=== PATIENT | male | born 1990 | race Two or more races ===

== ENCOUNTER 2016-05-15 17:15 | Emergency (ER) | payer OTHER ==
[2016-05-15 17:19] VITALS: O2SAT 95
--- NOTE | 2016-05-15 17:50 | CPEKG ---
Heart Rate: 86 RR Interval: 698 P-R Interval: 148 QRSD Interval: 104 QT Interval: 380 QTC Interval: 455 P [place]: 69 QRS [place]: 75 T Wave [place]: 51 EKG Severity - NORMAL ECG - EKG Impression: SINUS RHYTHM Electronically Signed By: Hyacinth Higuera 15-May-2016 19:34:11
--- NOTE | 2016-05-15 18:03 | EDPHY ---
H & P Stated Complaint: snycope earlier today - Personal History Current Tetanus/Diphtheria Vaccine: Unsure Current Tetanus Diphtheria and Acellular Pertussis (TDAP): Unsure - Medical/Surgical History Hx Asthma: Yes Hx Chronic Respiratory Disease: No Hx Diabetes: No Hx Cardiac Disease: No Hx Renal Disease: No Hx Cirrhosis: No Hx Alcoholism: No Hx HIV/AIDS: No Hx Splenectomy or Spleen Trauma: No Other PMH: DEPRESSION - Social History Smoking Status: Never smoked Constitutional: Initial Vital Signs Temperature (C) 36.6 C 05/15/16 17:18 Heart Rate 92 05/15/16 17:18 Respiratory Rate 14 05/15/16 17:18 Blood Pressure 111/72 05/15/16 17:18 O2 Sat (%) 95 05/15/16 17:18 O2 Delivery Mode Room Air Allergies/Adverse Reactions: CATS Allergy (Uncoded 01/24/15 12:37) environmental, trees Allergy (Uncoded 01/24/15 12:36) Home Medications: Medication Instructions Recorded Advair 100/50 (RX) 01/24/15 Meclizine HCl [Meclizine HCl 25 mg 25 mg PO TID PRN #10 tab 01/24/15 (RX,OTC)] Omeprazole 01/24/15
--- NOTE | 2016-05-15 18:04 | EDPHY ---
H & P Stated Complaint: snycope earlier today Time Seen by Provider: 05/15/16 17:47 HPI/ROS: CHIEF COMPLAINT: Syncope HISTORY OF PRESENT ILLNESS: The patient is a 25 y/o male arriving after a syncopal event while at elevation today. He says he flew in from [place] today and drove straight up to [facility] at 8000[address]. He got out of the car, began to feel dizzy, leaned against the car, and then lost consciousness. He was not confused upon regaining consciousness. He notes he had a mild stomach ache and felt dehydrated after the flight from [place]. He currently feels a "little spacey," but otherwise normal. He did have cold symptoms that recently resolved. He denies vomiting, diarrhea, bloody bowel movements, headache, shortness of breath, chest pain, injury from fainting, or pain anywhere. He had a previous syncopal episode in the remote past secondary to medication. History of asthma. REVIEW OF SYSTEMS: A 10 point review of systems was performed and is negative with the exception of the elements mentioned in the history of present illness. Source: Patient Exam Limitations: No limitations - Personal History Current Tetanus/Diphtheria Vaccine: Unsure Current Tetanus Diphtheria and Acellular Pertussis (TDAP): Unsure - Medical/Surgical History PMH: PMH includes: 1. Asthma 2. Previous syncope 8 years ago 3. Depression Hx Asthma: Yes Hx Chronic Respiratory Disease: No Hx Diabetes: No Hx Cardiac Disease: No Hx Renal Disease: No Hx Cirrhosis: No Hx Alcoholism: No Hx HIV/AIDS: No Hx Splenectomy or Spleen Trauma: No Other PMH: DEPRESSION - Social History Smoking Status: Never smoked Additional Social History: Nonsmoker. Occasional marijuana use. Studies chemistry and engineering at . - Physical Exam Exam: General Appearance: Alert, no acute distress. Eyes: Pupils equal and round, no conjunctival injection, no discharge. ENT, Mouth: Mucous membranes are moist, no oropharyngeal erythema or edema. Neck: No lymphadenopathy, supple, no cervical spine tenderness. Respiratory: Lungs are clear to auscultation; no wheezes, rales, or rhonchi. Cardiovascular: Regular rate and rhythm; no murmur, rub, or gallop. Gastrointestinal: Abdomen is soft and non tender, no masses or organomegaly, bowel sounds normal. Skin: Warm and dry, no rashes, normal color. Back: Nontender to palpation over the thoracolumbar spine. Extremities: No lower extremity edema, no calf tenderness or swelling. Neurological: Alert and oriented. Moving all four extremities easily and equally. Cranial nerves II through XII are examined and are intact (visual acuity not tested). Strength is 5 over 5 bilaterally with testing of all major motor groups. Sensation is intact to light touch over all 4 extremities. Deep tendon reflexes are 2+ in the biceps and knees bilaterally. Gait is normal. [id number] is performed accurately. Psychiatric: Normal affect. Constitutional: Initial Vital Signs Temperature (C) 36.6 C 05/15/16 17:18 Heart Rate 92 05/15/16 17:18 Respiratory Rate 14 05/15/16 17:18 Blood Pressure 111/72 05/15/16 17:18 O2 Sat (%) 95 05/15/16 17:18 O2 Delivery Mode Room Air Allergies/Adverse Reactions: CATS Allergy (Uncoded 01/24/15 12:37) environmental, trees Allergy (Uncoded 01/24/15 12:36) Home Medications: Medication Instructions Recorded Advair 100/50 (RX) 01/24/15 Meclizine HCl [Meclizine HCl 25 mg 25 mg PO TID PRN #10 tab 01/24/15 (RX,OTC)] Omeprazole 01/24/15 Medical Decision Making - Diagnostics EKG Interpretation: The 12 lead EKG was interpreted by myself. Sinus rhythm rate 86. See hard copy and/or "tracemaster" electronic copy for interpretation. ED Course/Re-evaluation: This is a healthy 25 y/o male presenting to the ED after a syncopal episode at altitude today. He reports he just flew in from [place] then drove up to 8000'. Upon standing up, he became dizzy then lost consciousness. He was not confused upon regaining consciousness and denies injury or incontinence. He is asymptomatic at time of assessment. His exam is unremarkable and his vitals are WNL. IV established. CBC drawn. Patient placed on customs compliance director. Recommended PO fluids. EKG is normal. CBC is unremarkable. He will be discharged with general syncope instructions and return precautions. This is likely a vasovagal event. He's been referred to [facility] for follow up. He is comfortable with this plan. Differential Diagnosis: Syncope including but not limited to vasovagal syncope, arrhythmia, dehydration , and blood loss. - Data Points Laboratory Results: Laboratory Results 05/15/16 18:10 Departure - Departure Disposition: Home, Routine, Self-Care Clinical Impression: Syncope Qualifiers: Syncope type: vasovagal syncope Qualifier Code: (R55) Syncope and collapse Condition: Good Instructions: Syncope (ED) Additional Instructions: 1. Increase fluid intake, particularly at altitude. 2. Follow up with a primary care provider this week for persistent symptoms. 3. Return to the ED for chest pain, shortness of breath, headache, or repeat fainting. Referrals: [facility] [place] [Outside] - As per Instructions Report Scribed for: Hyacinth Higuera Report Scribed by: Lin Darnell Date of Report: 05/15/16 Time of Report: 18:06 Physician Review and Approval Statement: 05/17/16 09:51 Portions of this note were transcribed by the coroner/medical examiner. I, Dr. Hyacinth Higuera, personally performed the history, physical exam, and medical decision- making; and confirmed the accuracy of the information in the transcribed note.
[2016-05-15 18:13] LABS: % IMMATURE GRANULYOCYTES 0.6 % (0.0-1.1); ABSOLUTE IMMATURE GRANULOCYTES 0.06 10^3/uL (0.00-0.10); ADD DIFF? NO; ADD MORPH? NO; ADD SCAN? NO; ATYPICAL LYMPHOCYTE FLAG 0 (0-99); FRAGMENT RBC FLAG 0 (0-99); HEMATOCRIT 41.9 % (40.0-51.0); HEMOGLOBIN 15.1 g/dL (13.7-17.5); LEFT SHIFT FLG 0 (0-99); LIPEMIA HEMOLYSIS FLAG 90 (0-99); MEAN CELL HEMOGLOBIN 29.9 pg (27.9-34.1); MEAN PLATELET VOLUME 9.6 fL (8.7-11.7); PLATELET CLUMPS FLAG 0 (0-99); PLATELET COUNT 302 10^3/uL (150-400); RED BLOOD CELL COUNT 5.05 10^6/uL (4.40-6.38); RED CELL DISTRIBUTION WIDTH 12.9 % (11.5-15.2)
[2016-05-15 18:53] VITALS: BP 118/79; PULSE 73; RESP 16; TEMP 97.5
== END 2016-05-15 18:51 | disposition home or self-care (01) ==
DX: R55 Syncope and collapse (principal); J45.909 Unspecified asthma, uncomplicated

== ENCOUNTER 2017-04-17 16:07 | Emergency (ER) | payer OTHER ==
--- NOTE | 2017-04-17 16:24 | EDPHY ---
H & P Stated Complaint: Hyperventilating;+carpal spasms;under a lot of stress w/finals Time Seen by Provider: 04/17/17 16:23 HPI/ROS: HPI: This is a 26-year-old male presents with Chief Complaint: Hyperventilating;+carpal spasms;under a lot of stress w/finals Location: Body Quality: Proventil Duration: Approximately 30 min Signs and Symptoms: No chest pain, no palpitations, no abdominal pain, no urinary symptoms, no fever, no headache, no neck stiffness, + dyspnea, + cough, + wheezing Timing: Sudden onset Severity: Severe Context: Medical history of depression, anxiety patient reports that he is compliant with Prozac presents with sudden onset of lightheadedness, nausea and then rapid breathing pattern. He reports that he just could not catch his breath. 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 He is most worried about his [employer] final. Denies suicidal ideation/homicidal ideation. No prior history of panic attacks but he does suffer from anxiety from time to time. No recent long distance travel. No swelling in his lower extremities. Patient asking if he can have a note to be excused from his final today. Modifying Factors: None Comment: ROS: see HPI Constitutional: No fever, no chills, no weight loss Eyes: No blurred vision Respiratory: No shortness of breath, no cough Cardiovascular: No chest pain Gastrointestinal: No nausea, no vomiting, no diarrhea Genitourinary: No dysuria Extremities: No myalgias Neurologic: No weakness, no numbness Skin: No rashes Hematologic: No bruising, no bleeding MEDICAL/SURGICAL/SOCIAL HISTORY: Medical history: Depression, anxiety. Takes Prozac. Surgical history: Denies Social history: Local college student CONSTITUTIONAL: Extremely anxious but polite and cooperative adult male, friend at bedside, awake and alert, no obvious distress HEENT: Atraumatic and normocephalic, PERRL, EOMI. Tympanic membranes clear. Oropharynx clear, no exudate and moist pink mucosa. Airway patent. No lymphadenopathy. No meningismus. Cardiovascular: Normal S1/S2, tachycardia, regular rhythm, without murmur rub or gallop. PULMONARY/CHEST: Symmetrical and nontender. Clear to auscultation bilaterally. Good air movement. No accessory muscle usage. Tachypneic with shallow rapid beat breathing pattern. ABDOMEN: Soft, nondistended, nontender, no rebound, no guarding, no peritoneal signs, no masses or organomegaly. No CVAT. EXTREMITIES: 2/2 pulses, strength 5/5, no deformities, no clubbing, no cyanosis or edema. NEUROLOGICAL: no focal neuro deficits. GCS 15. SKIN: Warm and dry, mildly diaphoretic, no erythema. no rash. Good capillary refill. Source: Patient Exam Limitations: No limitations - Personal History Current Tetanus Diphtheria and Acellular Pertussis (TDAP): Yes - Medical/Surgical History Hx Asthma: Yes Hx Chronic Respiratory Disease: No Hx Diabetes: No Hx Cardiac Disease: No Hx Renal Disease: No Hx Cirrhosis: No Hx Alcoholism: No Hx HIV/AIDS: No Hx Splenectomy or Spleen Trauma: No Other PMH: DEPRESSION/anxiety - Social History Smoking Status: Never smoked Constitutional: Initial Vital Signs Heart Rate 94 04/17/17 16:10 Respiratory Rate 26 H 04/17/17 16:10 Blood Pressure 126/87 H 04/17/17 16:10 O2 Sat (%) 100 04/17/17 16:10 O2 Delivery Mode Room Air Allergies/Adverse Reactions: CATS Allergy (Uncoded 01/24/15 12:37) environmental, trees Allergy (Uncoded 01/24/15 12:36) Home Medications: Medication Instructions Recorded FLUoxetine [PROzac] 20 mg PO 04/17/17 hydrOXYzine HCL [Vistaril 25MG] 25 mg PO Q8 PRN #6 tab 04/17/17 Medical Decision Making ED Course/Re-evaluation: Patient is clearly having an anxiety attack. IV Ativan 2 mg given with immediate relief of symptoms. placed on NRB upon arrival. No hypoxia noted. 1800: Re-evaluated patient and he is calm, cooperative and repeat vitals are stable. No signs of homicidal ideation/suicidal ideation/major severe depression. Vital signs stabilized at discharge. This patient was seen under the supervision of my secondary supervising physician. I evaluated care for this patient independently. Discussed this patient with Dr. Meza who did not see the patient. Differential Diagnosis: Differential diagnosis includes but is not limited to anxiety, poor coping mechanisms. - Data Points Medications Given: Discontinued Medications Lorazepam (Ativan Injection) 2 mg IVP EDNOW ONE Stop: 04/17/17 16:34 Last Admin: 04/17/17 16:44 Dose: 1 mg Departure - Departure Disposition: Home, Routine, Self-Care Clinical Impression: Anxiety hyperventilation Condition: Good Instructions: Hyperventilation (ED), Anxiety (ED), Panic Attack (ED) Additional Instructions: If your depression and anxiety are not controlled by Prozac please follow-up [facility] for further evaluation and recommendation of adjuvant therapy. You may take hydroxyzine/Vistaril every 8 hr as needed for severe anxiety or panic attacks. Referrals: [facility]. [Clinic] - As per Instructions Gideon Quispe MD [Medical Doctor] - As per Instructions Stand Alone Forms: School Excuse Prescriptions: hydrOXYzine HCL [Vistaril 25MG] 25 mg PO Q8 PRN #6 tab PRN Reason: Anxiety
[2017-04-17] MEDS ORDERED: LORazepam 2 MG/ML INJ IVP ONE (16:33)
[2017-04-17] MEDS ORDERED: ONDANSETRON DISINTEGRATING 4 MG TAB ONE (18:23)
[2017-04-17 18:38] VITALS: BP 125/87; PULSE 69; RESP 16; TEMP 98.4; O2SAT 97
== END 2017-04-17 18:38 | disposition home or self-care (01) ==
DX: F41.9 Anxiety disorder, unspecified (principal); J45.909 Unspecified asthma, uncomplicated
CPT/HCPCS: 96374; J2060

== ENCOUNTER 2017-04-18 18:16 | Emergency (ER) | payer OTHER ==
--- NOTE | 2017-04-18 18:32 | EDPHY ---
H & P Stated Complaint: ongoing weakness and dizziness Time Seen by Provider: 04/18/17 18:32 - Personal History Current Tetanus Diphtheria and Acellular Pertussis (TDAP): Unsure - Medical/Surgical History Hx Asthma: Yes Hx Chronic Respiratory Disease: No Hx Diabetes: No Hx Cardiac Disease: No Hx Renal Disease: No Hx Cirrhosis: No Hx Alcoholism: No Hx HIV/AIDS: No Hx Splenectomy or Spleen Trauma: No Other PMH: DEPRESSION, knee surgeryu - Social History Smoking Status: Never smoked Constitutional: Initial Vital Signs Temperature (C) 36.5 C 04/18/17 18:19 Heart Rate 80 04/18/17 18:19 Respiratory Rate 18 04/18/17 18:19 Blood Pressure 130/79 H 04/18/17 18:19 O2 Sat (%) 97 04/18/17 18:19 O2 Delivery Mode Room Air Allergies/Adverse Reactions: CATS Allergy (Uncoded 04/18/17 18:17) environmental, trees Allergy (Uncoded 04/18/17 18:17) Home Medications: Medication Instructions Recorded FLUoxetine [PROzac] 20 mg PO 04/17/17 hydrOXYzine HCL [Vistaril 25MG] 25 mg PO Q8 PRN #6 tab 04/17/17 Medical Decision Making ED Course/Re-evaluation: CHIEF COMPLAINT: HISTORY OF PRESENT ILLNESS: must have 4 elements: Location, Quality, Severity , Duration, Timing, Context, Modifying Factors, Associated Signs and Symptoms REVIEW OF SYSTEMS: A 10 point review of systems was performed and is negative with the exception of the elements mentioned in the history of present illness. PHYSICAL EXAM: HR, BP, O2 Sat, RR. Temp noted General Appearance: Alert, well hydrated, appropriate, and non-toxic appearing. Head: Atraumatic without scalp tenderness or obvious injury Eyes: Pupils equal, round, reactive to light and accommodation, EOMI, no trauma , no injection. Ears: Clear bilaterally, no perforation, normal landmarks Nose: Atraumatic, no rhinorrhea, clear. Throat: There is no erythema or exudates, no lesions, normal tonsils, mucus membranes moist. Neck: Supple, 2+ carotid upstroke, nontender, no lymphadenopathy. Respiratory: No retractions, no distress, no wheezes, and no accessory muscle use. Lungs are clear to auscultation bilaterally. Cardiovascular: Regular rate and rhythm, no murmurs, rubs, or gallops. Bilateral carotid, radial, dorsalis pedis, and posterior tibial pulses intact. Good capillary refill all extremities. Gastrointestinal: Abdomen is soft, nontender, non-distended, no masses, no rebound, no guarding, no peritoneal signs. Musculoskeletal: Normal active ROM of all extremities, atraumatic. Neurological: Alert, appropriate, and interactive. The patient has normal DTRs and non-focal cranial nerves, motor, sensory, and cerebellar exam. Skin: No rashes, good turgor, no nodules on palpation. Past medical history: Past surgical history: Family history: Social history: DIAGNOSTICS/PROCEDURES/CRITICAL CARE TIME: DIFFERENTIAL DIAGNOSIS: MEDICAL DECISION MAKING: Departure - Departure Referrals: NONE *PRIMARY CARE P,. [Primary Care Provider] - As per Instructions
[2017-04-18] MEDS ORDERED: NS 1,000 ML IV ONE (19:17)
[2017-04-18] MEDS ORDERED: MECLIZINE HCL 25 MG TAB PO ONE (19:25)
[2017-04-18 19:42] VITALS: BP 119/82; PULSE 100; RESP 20; TEMP 97.9; O2SAT 94
[2017-04-18 19:43] LABS: ANION GAP 17 mEq/L (8-16); CALCIUM 9.7 mg/dL (8.5-10.4); CARBON DIOXIDE 22 mEq/l (22-31); CHLORIDE 105 mEq/L (97-110); CREATININE 0.9 mg/dL (0.7-1.3); GLOMERULAR FILTRATION RATE > 60; GLUCOSE 117 mg/dL (70-100); POTASSIUM 3.7 mEq/L (3.5-5.2); SODIUM 144 mEq/L (134-144)
--- NOTE | 2017-04-18 19:54 | EDPHY ---
H & P Stated Complaint: ongoing weakness and dizziness Time Seen by Provider: 04/18/17 18:32 HPI/ROS: HPI: A 26-year-old male presents with Chief Complaint: Dizziness Location: Head Quality: Dizziness Duration: 1 day Signs and Symptoms: No fever, no chest pain, no photophobia, no neck stiffness , no abdominal pain Timing: Acute, constant Severity: Moderate Context: Patient presents today with continued dizziness despite his ER visit yesterday and full laboratory workup that was unremarkable. Patient had been exposed varying seeing extreme anxiety with studying for his finals and connected complete resolution of his symptoms with Ativan. He reports some ear fullness and nasal congestion for the last 3 days. He now reports that the room is spinning at times. Eating and drinking well Modifying Factors: None Comment: ROS: see HPI Constitutional: No fever, no chills, no weight loss Eyes: No blurred vision Respiratory: No shortness of breath, no cough Cardiovascular: No chest pain Gastrointestinal: No nausea, no vomiting, no diarrhea Genitourinary: No dysuria Extremities: No myalgias Neurologic: No weakness, no numbness Skin: No rashes Hematologic: No bruising, no bleeding MEDICAL/SURGICAL/SOCIAL HISTORY: Medical history: Depression, anxiety Surgical history: Knee surgery Social history: College student CONSTITUTIONAL: Extremely well-appearing adult white male, awake and alert, no obvious distress HEENT: Atraumatic and normocephalic, PERRL, EOMI. Tympanic membranes clear. Oropharynx clear, no exudate and moist pink mucosa. Airway patent. No lymphadenopathy. No meningismus. Cardiovascular: Normal S1/S2, regular rate, regular rhythm, without murmur rub or gallop. PULMONARY/CHEST: Symmetrical and nontender. Clear to auscultation bilaterally. Good air movement. No accessory muscle usage. ABDOMEN: Soft, nondistended, nontender, no rebound, no guarding, no peritoneal signs, no masses or organomegaly. No CVAT. EXTREMITIES: 2/2 pulses, strength 5/5, no deformities, no clubbing, no cyanosis or edema. NEUROLOGICAL: no focal neuro deficits. GCS 15. SKIN: Warm and dry, no erythema. no rash. Good capillary refill. Source: Patient - Personal History Current Tetanus Diphtheria and Acellular Pertussis (TDAP): Unsure - Medical/Surgical History Hx Asthma: Yes Hx Chronic Respiratory Disease: No Hx Diabetes: No Hx Cardiac Disease: No Hx Renal Disease: No Hx Cirrhosis: No Hx Alcoholism: No Hx HIV/AIDS: No Hx Splenectomy or Spleen Trauma: No Other PMH: DEPRESSION, knee surgeryu - Social History Smoking Status: Never smoked Constitutional: Initial Vital Signs Temperature (C) 36.5 C 04/18/17 18:19 Heart Rate 80 04/18/17 18:19 Respiratory Rate 18 04/18/17 18:19 Blood Pressure 130/79 H 04/18/17 18:19 O2 Sat (%) 97 04/18/17 18:19 O2 Delivery Mode Room Air Allergies/Adverse Reactions: CATS Allergy (Uncoded 04/18/17 18:17) environmental, trees Allergy (Uncoded 04/18/17 18:17) Home Medications: Medication Instructions Recorded FLUoxetine [PROzac] 20 mg PO 04/17/17 hydrOXYzine HCL [Vistaril 25MG] 25 mg PO Q8 PRN #6 tab 04/17/17 Meclizine HCl [Meclizine HCl 12.5 12.5 mg PO Q6 PRN #12 tab 04/18/17 mg (*)] Medical Decision Making - Diagnostics Imaging Results: Imaging Impressions Head CT 04/18/17 19:17 Impression: Normal brain. No intracranial hemorrhage or evidence of ischemia. Findings discussed with Emergency Department physician, Randi Ricci at 19:46. ED Course/Re-evaluation: Labs, head CT scan, IV fluids, oral medications ordered Afebrile no systemic signs. Called by Radiology and head CT scan shows no acute intracranial process Differential at this point includes vertigo, anxiety Labs reviewed and grossly unremarkable Reassessed patient who reports complete resolution of symptoms after meclizine and IV fluids At discharge patient asking for another day off from his final exams. Interestingly patient received, yesterday school excuse as well. This patient was seen under the supervision of my secondary supervising physician. I evaluated care for this patient independently. Discussed this patient with Dr. Meza who did not see the patient. Differential Diagnosis: Dizziness including but not limited to peripheral and central causes of vertigo , orthostatic causes including dehydration, and blood loss. - Data Points Laboratory Results: Laboratory Results 04/18/17 18:58 04/18/17 18:58 04/18/17 04/18/1717 18:58 18:58 18:40 WBC 6.85 10^3/uL 10^3/uL (3.80-9.50) RBC 5.38 10^6/uL 10^6/uL (4.40-6.38) Hgb 16.2 g/dL g/dL (13.7-17.5) Hct 45.9 % % (40.0-51.0) MCV 85.3 fL fL (81.5-99.8) MCH 30.1 pg pg (27.9-34.1) MCHC 35.3 g/dL g/dL (32.4-36.7) RDW 12.9 % % (11.5-15.2) Plt Count 286 10^3/uL 10^3/uL (150-400) MPV 10.1 fL fL (8.7-11.7) Neut % (Auto) 59.7 % % (39.3-74.2) Lymph % (Auto) 30.7 % % (15.0-45.0) Collin % (Auto) 7.9 % % (4.5-13.0) Eos % (Auto) 0.9 % % (0.6-7.6) Baso % (Auto) 0.7 % % (0.3-1.7) Nucleat RBC Rel Count 0.0 % % (0.0-0.2) Absolute Neuts (auto) 4.09 10^3/uL 10^3/uL (1.70-6.50) Absolute Lymphs (auto) 2.10 10^3/uL 10^3/uL (1.00-3.00) Absolute Monos (auto) 0.54 10^3/uL 10^3/uL (0.30-0.80) Absolute Eos (auto) 0.06 10^3/uL 10^3/uL (0.03-0.40) Absolute Basos (auto) 0.05 10^3/uL 10^3/uL (0.02-0.10) Absolute Nucleated RBC 0.00 10^3/uL 10^3/uL (0-0.01) Immature Gran % 0.1 % % (0.0-1.1) Immature Gran # 0.01 10^3/uL 10^3/uL (0.00-0.10) D-Dimer Sodium 144 mEq/L mEq/L (134-144) Potassium 3.7 mEq/L mEq/L (3.5-5.2) Chloride 105 mEq/L mEq/L (97-110) Carbon Dioxide 22 mEq/l mEq/l (22-31) Anion Gap 17 mEq/L H mEq/L (8-16) BUN 17 mg/dL mg/dL (7-23) Creatinine 0.9 mg/dL mg/dL (0.7-1.3) Estimated GFR > 60 Glucose 117 mg/dL H mg/dL (70-100) Calcium 9.7 mg/dL mg/dL (8.5-10.4) TSH Pending 04/18/17 18:40 WBC RBC Hgb Hct MCV MCH MCHC RDW Plt Count MPV Neut % (Auto) Lymph % (Auto) Collin % (Auto) Eos % (Auto) Baso % (Auto) Nucleat RBC Rel Count Absolute Neuts (auto) Absolute Lymphs (auto) Absolute Monos (auto) Absolute Eos (auto) Absolute Basos (auto) Absolute Nucleated RBC Immature Gran % Immature Gran # D-Dimer < 0.27 ug/mLFEU ug/mLFEU (0.00-0.50) Sodium Potassium Chloride Carbon Dioxide Anion Gap BUN Creatinine Estimated GFR Glucose Calcium TSH Medications Given: Discontinued Medications Sodium Chloride (Ns) 1,000 mls @ 0 mls/hr IV EDNOW ONE; Wide Open PRN Reason: Protocol Stop: 04/18/17 19:18 Last Admin: 04/18/17 19:37 Dose: 1,000 mls Meclizine HCl (Meclizine Hcl) 25 mg PO ONCE ONE Stop: 04/18/17 19:26 Last Admin: 04/18/17 19:38 Dose: 25 mg Departure - Departure Disposition: Home, Routine, Self-Care Clinical Impression: Dizziness Condition: Good Instructions: Vertigo (ED) Referrals: [facility],. [Clinic] - As per Instructions Stand Alone Forms: School Excuse Prescriptions: Meclizine HCl [Meclizine HCl 12.5 mg (*)] 12.5 mg PO Q6 PRN #12 tab PRN Reason: Dizziness
[2017-04-18 19:55] LABS: % IMMATURE GRANULYOCYTES 0.1 % (0.0-1.1); ABSOLUTE IMMATURE GRANULOCYTES 0.01 10^3/uL (0.00-0.10); ADD DIFF? NO; ADD MORPH? NO; ADD SCAN? NO; ATYPICAL LYMPHOCYTE FLAG 0 (0-99); FRAGMENT RBC FLAG 0 (0-99); HEMATOCRIT 45.9 % (40.0-51.0); HEMOGLOBIN 16.2 g/dL (13.7-17.5); LEFT SHIFT FLG 0 (0-99); LIPEMIA HEMOLYSIS FLAG 90 (0-99); MEAN CELL HEMOGLOBIN 30.1 pg (27.9-34.1); MEAN CELL HEMOGLOBIN CONCENTR. 35.3 g/dL (32.4-36.7); MEAN CELL VOLUME 85.3 fL (81.5-99.8); MEAN PLATELET VOLUME 10.1 fL (8.7-11.7); PLATELET CLUMPS FLAG 0 (0-99); PLATELET COUNT 286 10^3/uL (150-400); RED BLOOD CELL COUNT 5.38 10^6/uL (4.40-6.38); RED CELL DISTRIBUTION WIDTH 12.9 % (11.5-15.2)
== END 2017-04-18 20:17 | disposition home or self-care (01) ==
DX: R42 Dizziness and giddiness (principal); J45.909 Unspecified asthma, uncomplicated; E86.9 Volume depletion, unspecified